=== PATIENT | male | born 1950 | race Caucasian/White ===

== ENCOUNTER 2020-09-29 10:42 | Emergency (ER) | payer OTHER, SELFPAY ==
--- NOTE | ~2020-09-29 | XR_ITS ---
EXAMINATION: XR knee LT min 4V DATE: 09/29/2020 11:21 INDICATION: Left knee pain TECHNIQUE: Four views of the left knee were obtained. COMPARISON: None. FINDINGS: Alignment is normal. No fracture or osteochondral lesion. There is mild tricompartmental os teoarthritis characterized by tiny marginal osteophytes. No joint effusion/synovitis. Calcified athe rosclerosis is noted. IMPRESSION: 1. No acute osseous abnormality. Reviewed, dictated and finalized at location A.
[2020-09-29 10:51] VITALS: BP 149/81; PULSE 99; RESP 16; TEMP 36.7; O2SAT 99
--- NOTE | 2020-09-29 10:56 | ED.EXTPRO ---
HPI - Extremity Problem General Chief complaint: Extremity Injury, Lower Stated complaint: L KNEE PAIN Time Seen by Provider: 09/29/20 10:56 Source: patient and RN notes reviewed Mode of arrival: ambulatory Limitations: no limitations History of Present Illness HPI Narrative: 69-year-old male presents concern for left knee pain. He denies any injury or trauma. He reports he mowed the grass on a hill side that caused him to have a lot of pressure on his knees yesterday. Reports pain started after that. He denies any acute onset of pain. He reports pain at rest, worsening pain with any movement of the knee or weightbearing. He has been using a cane for mobility, he does not use a cane at baseline. He denies intervention MD Complaint: extremity pain Location: left and knee Related Data Home Medications Medication Instructions Recorded Confirmed clopidogrel 75 mg tablet 75 mg PO DAILY 03/27/20 03/27/20 yyoljtpy-qvu-LZ-lycopen-lutein tablet PO 09/29/20 [Centrum Silver Men] Allergies Allergy/AdvReac Type Severity Reaction Status Date / Time No Known Allergies Allergy Verified 09/29/20 10:51 Review of Systems Review of Systems: Narrative: CONSTITUTIONAL: Denies malaise, chills, sweats, or fever. CARDIOVASCULAR: Denies chest pain, palpitations, or pitting edema. RESPIRATORY: Denies cough or dyspnea. SKIN: Denies lacerations, abrasions. Reports redness MUSCULOSKELETAL: Reports left knee pain and swelling NEUROLOGIC: Denies numbness, weakness All systems reviewed & are unremarkable except as noted in HPI and below PMFSH Past Medical History Medical History (Updated 09/29/20 @ 11:39 by Rosalba Loredo NP) Degenerative disk disease Surgical History Surgical History H/O wrist surgery Tonsillectomy planned Family History Family History Mother Family history of cardiovascular disease Family history of malignant neoplasm Father Family history of cardiovascular disease Grandparent Family history of cardiovascular disease Sibling Family history of cardiovascular disease Social History Social History Smoking status: Former smoker Second hand tobacco smoke exposure: No Smoking end date: 03/30/72 Alcohol intake: never Substance use: never Substance use type: does not use Gender identity (if verbalized by the patient): Male Spiritual care concerns: No Agree to blood products: No Comments At time of signature, agree with nursing past medical, surgical, social and family history. There is no relevant family history pertinent to the presenting complaint Exam Narrative: Exam Narrative: GENERAL: Well-appearing, well-nourished, and in no acute distress. HEAD: Normocephalic, atraumatic. EYES: PERRLA, conjunctivae clear NECK: Supple. CHEST: Speaks in full sentences. No respiratory distress. HEART: Regular rate and rhythm. Normal and equal peripheral pulses. EXTREMITIES: Left knee has normal sensation, limited range of motion. Moderate edema, mild erythema, no ecchymosis. 3/5 strength with knee flexion and extension. Normal sensation with sensitivity to light touch and pain. Anterior patellar tenderness. No open wounds, no skin tenting, no devitalized tissue or atrophy, no trophic changes, no obvious deformity, alignment normal, nearby joints and structures intact. Distal pulses palpable and equal bilaterally, skin warm, dry, pink. Capillary refill less than 3 seconds. SKIN: Warm, dry, no rash. NEURO: Alert and oriented x3. PSYCH: Normal mood and affect Course Course Emergency Course: Patient is aware of diagnosis, understands and agrees to treatment plan. Anticipatory guidance given. Patient agrees to follow-up as directed and is aware of reasons to seek care at the emergency department. Portions of this record ma
== END 2020-09-29 11:46 | disposition home or self-care (01) ==
PROVIDERS: Emergency Provider Nurse Practitioner; PCP Family Medicine
DX: M25.562 Pain in left knee (principal); M25.462 Effusion, left knee; Z87.891 Personal history of nicotine dependence
CPT/HCPCS: 73564; 99213; G0463

== ENCOUNTER 2022-03-19 00:21 | Day surgery (SDC) | payer OTHER, SELFPAY ==
[2022-03-13 08:49] VITALS: BMI 26.4
--- NOTE | 2022-03-18 14:11 | PM.HPGS ---
History of Present Illness History of Present Illness Consent: Risks, benefits, and alternatives have been discussed and questions answered. Patient agrees to proceed with procedure. Chief complaint: neoplasm screening Narrative: Derek Vera is a 71 year old male who was referred for colon cancer screening. Review of Systems Review of Systems: All systems reviewed & are unremarkable except as noted in HPI and below PMFSH Past Medical History Medical History Degenerative disk disease Skin cancer Surgical History Surgical History H/O wrist surgery Tonsillectomy planned Family History Family History Mother Family history of cardiovascular disease Family history of malignant neoplasm Father Family history of cardiovascular disease Grandparent Family history of cardiovascular disease Sibling Family history of cardiovascular disease Social History Social History Smoking status: Never smoker Second hand tobacco smoke exposure: No Smoking end date: 03/30/72 Alcohol intake: never Substance use: never Substance use type: does not use Living arrangements: with family Gender identity (if verbalized by the patient): Male Spiritual care concerns: No Agree to blood products: No Meds Home Medications and Allergies Home Medications Medication Instructions Recorded Confirmed Type fkuedrfp-yue-qfybk acid 300 1 tablet PO DAILY 09/29/20 03/19/22 History mcg-lycopene 600 mcg-lutein 300 mcg tablet (Centrum Silver Men) finasteride 5 mg tablet 5 mg PO DAILY 11/12/21 03/19/22 History allopurinol 100 mg tablet 100 mg PO DAILY 03/13/22 03/19/22 History atorvastatin 40 mg tablet 40 mg PO DAILY 03/13/22 03/19/22 History clopidogrel 75 mg tablet 75 mg PO DAILY 03/13/22 03/13/22 History colchicine 0.6 mg tablet 0.6 mg PO BID PRN GOUT 03/13/22 03/19/22 History tamsulosin 0.4 mg capsule 0.4 mg PO DAILY 03/13/22 03/19/22 History Allergies Allergy/AdvReac Type Severity Reaction Status Date / Time No Known Allergies Allergy Verified 03/19/22 06:46 Exam Const: General: alert Orientation/consciousness: patient oriented x3 Resp: Auscultation: clear to auscultation bilaterally Cardio: Rhythm: regular rhythm GI: GI Palp: Yes Soft to palpation and No Tenderness to palpation present (GI) Neuro: General: patient oriented x3 Assessment and Plan Assessment and plan (1) Colon cancer screening: Code(s): Z12.11 - Encounter for screening for malignant neoplasm of colon Status: Acute Assessment and Plan: Colonoscopy with possible biopsy or polypectomy or cautery or injection of substances.
[2022-03-19 06:49] VITALS: BP 151/87; PULSE 78; RESP 20; TEMP 36.1; O2SAT 99; BMI 26.4
[2022-03-19] MEDS: LACTATED RINGERS 1,000 ML 150 ML IV CONT (06:52)
--- NOTE | 2022-03-19 07:27 | WPDANESEPPF ---
Anes - Initial Pre Proc Eval Procedure: Operation Date: 03/19/22 08:00 Proposed Procedures p Screening Colonoscopy - Ruiz Poole MD Date/Time: 03/19/22 07:27 Surgeon: Ruiz Poole MD Pre Op Diagnosis: neoplasm screening Patient Data Age: 71 Gender: M Height: 1.8 m Weight: 86.1 kg Last Vital Signs Temp 36.1 C L 03/19/22 06:49 Pulse 78 03/19/22 06:49 Resp 20 03/19/22 06:49 BP 151/87 H 03/19/22 06:49 Pulse Ox 99 03/19/22 06:49 O2 Del Method Room Air 03/19/22 06:49 Allergies Allergy/AdvReac Type Severity Reaction Status Date / Time No Known Allergies Allergy Verified 03/19/22 06:46 Home Medications Medication Instructions Recorded Confirmed Type cacoztvs-ymy-rkzon acid 300 1 tablet PO DAILY 09/29/20 03/19/22 History mcg-lycopene 600 mcg-lutein 300 mcg tablet (Centrum Silver Men) finasteride 5 mg tablet 5 mg PO DAILY 11/12/21 03/19/22 History allopurinol 100 mg tablet 100 mg PO DAILY 03/13/22 03/19/22 History atorvastatin 40 mg tablet 40 mg PO DAILY 03/13/22 03/19/22 History clopidogrel 75 mg tablet 75 mg PO DAILY 03/13/22 03/13/22 History colchicine 0.6 mg tablet 0.6 mg PO BID PRN GOUT 03/13/22 03/19/22 History tamsulosin 0.4 mg capsule 0.4 mg PO DAILY 03/13/22 03/19/22 History Patient hx anesthesia problems: none Family hx anesthesia problems: none Results Review: All pre-operative results and documents have been reviewed as part of the pre-operative evaluation. [facility] Past Medical History Medical History Degenerative disk disease Skin cancer Surgical History Surgical History H/O wrist surgery Tonsillectomy planned Family History Family History Mother Family history of cardiovascular disease Family history of malignant neoplasm Father Family history of cardiovascular disease Grandparent Family history of cardiovascular disease Sibling Family history of cardiovascular disease Social History Social History Smoking status: Never smoker Second hand tobacco smoke exposure: No Smoking end date: 03/30/72 Alcohol intake: never Substance use: never Substance use type: does not use Living arrangements: with family Gender identity (if verbalized by the patient): Male Spiritual care concerns: No Agree to blood products: No Anes - Eval Final PreProcedure Day of Procedure 03/19/22 07:27 Patient weight: overweight Heart: regular rate and rhythm Lungs: clear to auscultation Airway: Mallampati scale class II Neurological: alert and oriented Last oral intake: >/= 8 hours ASA classification: III Emergent: no Anesthetic plan: proceed Anesthesia type and monitoring: general GIVS and standard monitoring Results Review: All pre-operative results and documents have been reviewed as part of the pre-operative evaluation. Informed Consent: The patient's anesthetic plan and its attendant risks and benefits were discussed with the patient/family/POA. Questions were solicited and answers provided to the satisfaction of the patient/family/POA.
[2022-03-19] MEDS: SIMETHICONE ORAL SUSPENSION 20 MG/0.3 ML 30 ML BOTTLE 0.6 ML IRRIGATION (08:05)
[2022-03-19 08:15] VITALS: BP 105/69; PULSE 62; RESP 18; O2SAT 96
[2022-03-19 08:25] VITALS: BP 108/79; PULSE 67; RESP 19; O2SAT 96
[2022-03-19 08:35] VITALS: BP 130/80; PULSE 67; RESP 19; O2SAT 96
== END 2022-03-19 08:50 | disposition home or self-care (01) ==
PROVIDERS: PCP Family Medicine; Visit Provider Internal Medicine Gastroenterology
PROC: 0DJD8ZZ Inspection of Lower Intestinal Tract, Via Natural or Artificial Opening Endoscopic (ICD-10-PCS; CPT 45378; principal; 2022-03-19 08:00)
DX: Z12.11 Encounter for screening for malignant neoplasm of colon (principal); K57.30 Diverticulosis of large intestine without perforation or abscess without bleeding; K63.5 Polyp of colon; Z79.02 Long term (current) use of antithrombotics/antiplatelets
CPT/HCPCS: 45385; 88305; J2704; J7120

== ENCOUNTER → 2022-12-04 12:56 | Outpatient (CLI) | payer OTHER, SELFPAY ==
--- NOTE | ~2022-12-04 | XR_ITS ---
Clinical Indication: Hyperlipidemia PA and lateral views of the chest: Comparison: None Findings: The lungs are clear, without evidence of focal consolidation or pleural effusion. There is suspected chronic interstitial disease with basilar and peripheral distribution. Cardiomediastinal si lhouette is within normal limits. Bones and soft tissues are unremarkable. Impression: Probable chronic interstitial disease, as above. Reviewed, dictated and finalized at location . Impression: Probable chronic interstitial disease, as above.
== END ==
PROVIDERS: PCP Family Medicine; Visit Provider Physician Assistant Medical
DX: E78.5 Hyperlipidemia, unspecified (principal); M10.9 Gout, unspecified; R73.9 Hyperglycemia, unspecified; R94.5 Abnormal results of liver function studies; Z00.00 Encounter for general adult medical examination without abnormal findings; Z13.0 Encounter for screening for diseases of the blood and blood-forming organs and certain disorders involving the immune mechanism; Z86.73 Personal history of transient ischemic attack (TIA), and cerebral infarction without residual deficits
CPT/HCPCS: 71046

== ENCOUNTER 2024-06-13 08:51 | Outpatient (CLI) | payer OTHER, SELFPAY ==
--- NOTE | ~2024-06-13 | US_ITS ---
EXAMINATION: US carotid duplex BI DATE: 06/13/2024 09:38 INDICATION: Cerebral infarction TECHNIQUE: Grayscale, color Doppler, and pulsed Doppler images of the cervical carotid arteries were obtained. The degree of vessel stenosis is placed in one of the following categories: normal, <50%, 5 0-69%, >=70% but less than near-occlusion, near-occlusion, or total occlusion. Note that percent sten osis relative to normal distal artery lumen diameter is indirectly measured from velocity measurement s as described by Quinton, et al. Radiology 2003; 229:340-346. COMPARISON: Carotid CT angiogram dated 02/13/2011 FINDINGS: RIGHT: The right common carotid artery (CCA) peak systolic velocity (PSV) is 111 cm/s. The right internal ca rotid artery (ICA) PSV is 102 cm/s. The right ICA end-diastolic velocity (EDV) is 29 cm/s. The right ICA/CCA PSV ratio is 0.9. Grayscale and color Doppler images yield an estimate of <50% diameter reduc tion from plaque in the ICA. The external carotid artery (ECA) PSV is 98 cm/s. There is antegrade brianna w in the right vertebral artery. LEFT: The left CCA PSV is 107 cm/s. The left ICA PSV is 80 cm/s. The left ICA EDV is 18 cm/s. The left ICA/ CCA PSV ratio is 0.7. Grayscale and color Doppler images yield an estimate of <50% diameter reduction from plaque in the ICA. The ECA PSV is 151 cm/s. There is antegrade flow in the left vertebral arter y. IMPRESSION: 1. <50% stenosis in the right internal carotid artery. 2. <50% stenosis in the left internal carotid artery. Reviewed, dictated and finalized at location A.
--- OUTSIDE RECORDS SUMMARY | 2024-06-13 09:29 | XMS_ITS | Continuity of Care Document ---
Author Organization [facility] Address [address] [place] [address] Phone Care Team Providers Care Keg Filler Name Role Phone Roland Abdullahi Unavailable Unavailable Procedures Procedure Date Eye Exam & Treatment Eye Exam & Treatment Refraction Eye Exam, New Patient Advance Directives Directive Yes / No Effective Date File Name No Information Encounters Encounter Description Practice Location Reason(s) For Visit Diagnoses Date Provider Providers Copied on Encounter [facility], [address] [place] [address] [address], [place], [place], [id number], tel:[phone] [facility] No Information 1-201 0 Krishnasamy Roland. [address] [address], [place], [place], [facility], [place]. tel:[phone] [facility], [address] [place] [address] [address], [place], [place], [id number], tel:[phone] [facility] No Information 3-200 8 Krishnasamy Roland. [address] [facility] [address], [place], [address], [place]. tel:[phone] [facility], [address] [place] [address] [address], [place], [place], [id number], [place] tel:[phone] [facility] No Information 7-200 8 Krishnasamy Roland. [address] [facility] [address], [place], [address], [place]. tel:[phone] Family History Family Member Type Diagnosis Age At Onset No Information Payers Payer name Insurance type Covered democrat ID Authoriza tion(s) No Information Social History Type Description Quantity Date Captured Comments Sex Male Smoking Status No Information Chief Complaint And Reason For Visit No Information Reason For Referral Reason For Referral No Information History Of Present Illness Encounter Date Complaint History Of Prese nt Illness No Information Functional Status Date Functional Assessmen t No Information Instructions Date Instruction Additional Infor mation No Information Assessments Type Assessment Date No Information Patient Care Teams Name Effective Dates (start - stop) Status Members No Information
--- OUTSIDE RECORDS SUMMARY | 2024-06-13 09:29 | XMS_ITS | Patient Health Summary ---
Author Organization [facility] Address [address] [place] [address] Care Team Providers Care Small Products Ii Assembler Name Role Phone Mode Torres MD Primary Care Provider [phone] Note from [facility],non-owned Affiliates and Associated Physician Practices is amultiple site organization consisting of ambulatory clinics and hospital sitesin [place], [place], [place] and [place]. This disclosure is being madepursuant to the Care Everywhere program and may not contain all information available regarding this patient. Last updated 17.[facility] Allergies No known active allergies Medications * Be aware that medications may not be up to date on this document. Alwaysverify current medications with the patient. * FISH OIL PO Take by mouth. * diclofenac sodium EC (VOLTAREN) 75 MG tablet(Started 05/21/2015) TAKE 1 TABLET BY MOUTH TWICE DAILY 4 refills left Active Problems Problem Noted Date Diagnosed Date Cervicalgia 10/29/2009 Social History Tobacco Use Types Packs/Day Years Used Date Smoking Tobacco: Never Alcohol Use Standard Drinks/Week Comments No 0 (1 standard drink = 0.6 oz pur e alcohol) Sex and Gender Information Value Date Recorded Sex Assigned at Not on file Gender Identity Not on file Sexual Orientation Not on file Last Filed Vital Signs Vital Sign Reading Time Taken Comments Blood Pressure - - Pulse - - Temperature - - Respiratory Rate - - Oxygen Saturation - - Inhaled Oxygen Concentration - - Weight 86.2 kg (190 lb) 10/29/2009 11:34 AM CDT Height 177.8 cm (5' 10 ) 10/29/2009 11:34 AM CDT Body Mass Index 27.26 10/29/2009 11:34 AM CDT Care Teams Small Products Ii Assembler Relationship Specialty Start Date End Date Mode Torres MD [address] [place] [phone] PCP - General 04/02/22
--- OUTSIDE RECORDS SUMMARY | 2024-06-13 09:29 | XMS_ITS | Clinical Summary ---
Author Organization [facility] Address [address] [place] [address] Care Team Providers Care Lab Technologist Name Role Phone Mode Torres MD Primary Care Provider [phone] Source Comments [facility],non-owned Affiliates and Associated Physician Practices is amultiple site organization consisting of ambulatory clinics and hospital sitesin [place], [place], [place] and [place]. This disclosure is being madepursuant to the Care Everywhere program and may not contain all information available regarding this patient. Last updated 17.[facility] Allergies No known active allergies Medications * Be aware that medications may not be up to date on this document. Alwaysverify current medications with the patient. Medication Sig Dispensed Refills Start Date End Date Status FISH OIL PO Take by mouth. Active diclofenac sodium EC (VOLTAREN) 75 MG tablet TAKE 1 TABLET BY MOUTH TWICE DAILY 180 Tab 4 05/21/2015 Active Active Problems Problem Noted Date Diagnosed Date [...] Mass Index 27.26 10/29/2009 11:34 AM CDT Plan of Treatment Health Maintenance Due Date Last Done Comments COLOGUARD (AGES 45-75) - COL ON CA SCREENING 1949 COLON MONITORING 1949 COLONOSCOPY - COLON CA SCREENING 1949 CT COLONOGRAPHY - COLON CA SCREENING 1949 Colorectal Cancer Screening 1949 FIT - COLON CA SCREENING 1949 FLEX SIG - COLON CA SCREENING 1949 LIPID TESTING 1949 HEPATITIS C SCREENING 12/07/1967 DTAP/TDAP/TD VACCINES (1 - Tdap) 1968 PNEUMOCOCCAL VACCINE 50+ (1 of 1 - PCV) 12/12/1999 ZOSTER VACCINE (1 of 2) 12/12/1999 COVID-19 VACCINE (1 - 2023-2 5 season) 2023 INFLUENZA VACCINE (#1) 2023 DEPRESSION SCREENING 03/30/2024 MEDICARE AWV CALENDAR YEAR 2024 Respiratory Syncytial Virus (RSV) Vaccine Pt: or over 60 yrs (1 - 1-dose 75+ series) 2024 HEPATITIS B VACCINE Aged Out No longe r eligible based on patient's age to complete this topic HIB VACCINE Aged Out No longer eligi ble based on patient's age to complete this topic HPV VACCINE Aged Out No longer eligi ble based on patient's age to complete this topic MENINGOCOCCAL (Group B) VACC INE SHARED DECISION-MAKING Aged Out No longer eligibl e based on patient's age to complete this topic MENINGOCOCCAL GROUPS A/C/Y/W VACCINE Aged Out No longer eligible b ased on patient's age to complete this topic Care Teams Lab Technologist Relationship Specialty Start Date End Date Mode Torres MD [address] [place] [phone] PCP - General 04/02/22
--- OUTSIDE RECORDS SUMMARY | 2024-06-13 09:29 | XMS_ITS | Clinical Summary ---
Author Organization [place] [id number] [facility] Address [address] [place] [address] Care Team Providers Care Drug Safety Scientist Name Role Phone Evonne Molina DO Primary Care Provider + Allergies No known active allergies Medications atorvastatin (LIPITOR) 40 mg tablet Take 40 mg by mouth daily 06/03/2020 Active clopidogreL (PLAVIX) 75 mg tablet Take 75 mg by mouth daily 05/23/[address] (VOLTAREN) 75 mg EC tablet TAKE 1 TABLET BY MOUTH TWICE DAILY 05/21/2015 Active tamsulosin (FLOMAX) 0.4 mg extended release capsule Take 0.4 mg by mouth daily 06/03/2020 Active Active Problems Problem Noted Date Diagnosed Date Cervicalgia 10/29/2009 Social History Tobacco Use Types Packs/Day Years Used Date Smoking Tobacco: Never Personal Safety Answer Date Recorded Getting School Help Needed Not on file 06/12 Sex and Gender Information Value Date Recorded Sex Assigned at Not on file Legal Sex Male 4:46 AM INDUSTRIAL MILLWRIGHT Gender Identity Not on file Sexual Orientation Not on file Obstetrics History Plan of Treatment Not on file Insurance [facility] Care Teams Drug Safety Scientist Relationship Specialty Start Date End Date Evonne Molina DO [address] [place] [id number] PCP - General Family Medicine 04/05/20
--- OUTSIDE RECORDS SUMMARY | 2024-06-13 09:29 | XMS_ITS | CONTINUITY OF CARE DOCUMENT ---
Author Name veena curiel Address Unknown Organization [facility] Address [address] [place] [address] Phone [phone] Care Team Providers Care Passenger Elevator Operator Name Role Phone Lian ARRIOLA, John Unavailable MARCIAL MARTIN MD Unavailable [phone] MARCIAL MARTIN MD Unavailable [phone] VITAL SIGNS Date Observation Value Provider blood pressure, diastolic 98 mm[Hg] Anderson blood pressure, systolic 168 mm[Hg] Wilmar Benitez SOCIAL HISTORY Date Observation Value Provider smoking status quit Des solorzano FUNCTIONAL STATUS Date Observation Value Provider periodic limb movement index absent (0) Gege Joyner INSURANCE PROVIDERS Payer name Policy type / Coverage type Minden red democrat ID [facility] [id number]
--- OUTSIDE RECORDS SUMMARY | 2024-06-13 09:29 | XMS_ITS | Referral Summary ---
Author Organization [place] [id number] [facility] Address [address] [place] [address] Care Team Providers Care Machine Carton Marker Name Role Phone Evonne Molina DO Primary [...] on file Legal Sex Male 4:46 AM HAT IRONER Gender Identity Not on file Sexual Orientation Not on file Plan of Treatment Not on file Insurance [facility] Care Teams Machine Carton Marker Relationship Specialty Start Date End Date Evonne Molina DO [address] [place] [id number] PCP - General Family Medicine 04/05/20
--- OUTSIDE RECORDS SUMMARY | 2024-06-13 09:29 | XMS_ITS | Continuity of Care Document ---
Author Organization [facility] Address [address] [place] [address] Phone Care Team Providers Care Auto Dealership Porter Name Role Phone Mukesh ARRIOLA Meng Unavailable Unavailable Advance Directives Directive Yes / No Effective Date File Name No Information Encounters Encounter Description Practice Location Reason(s) For Visit Diagnoses Date Provider Providers Copied on Encounter [facility], [address], [place], [place], [id number], [place] tel:[phone] [facility] No Information Mukesh Conklin. [address], [place], [id number], [place]. tel:[phone] Family History Family Member Type Diagnosis Age [...]
--- OUTSIDE RECORDS SUMMARY | 2024-06-13 09:29 | XMS_ITS | Referral Summary ---
Author Organization [facility] Address [address] [place] [address] Care Team Providers Care Lining Stitcher Name Role Phone Mode Torres MD Primary Care Provider [phone] Source Comments [facility],non-owned Affiliates and Associated Physician Practices is amultiple site organization consisting of ambulatory clinics and hospital sitesin [place], [place], [place] and [place]. This disclosure is being madepursuant to the Care Everywhere program and may not contain all information available regarding this patient. Last updated 17.[facility] Allergies No known active allergies Medications * [...] 10/29/2009 11:34 AM CDT Plan of Treatment Not on file Care Teams Lining Stitcher Relationship Specialty Start Date End Date Mode Torres MD [address] [place] [phone] PCP - General 04/02/22
== END 2024-06-13 08:52 | disposition home or self-care (01) ==
LOC: ANHIMG 08:53
PROVIDERS: PCP Physician Assistant Medical; Visit Provider Psychiatry & Neurology Neurology
DX: I65.23 Occlusion and stenosis of bilateral carotid arteries (principal); I63.9 Cerebral infarction, unspecified
CPT/HCPCS: 93880